=== PATIENT | female | born 1980 | race African-American/Black ===

== ENCOUNTER 2021-06-08 03:04 | Emergency (ER) | payer MEDICAID ==
[~2021-06-08] VITALS: Ht 165.1 cm; Wt 112.9 kg
--- NOTE | 2021-06-08 03:10 | NUR ---
[facility] in [facility] - 06/08/21 at 0319 by APRIL patient to room
[2021-06-08 03:24] VITALS: BP 146/115
--- NOTE | 2021-06-08 03:30 | NUR ---
patient ambulated to the bathroom to change. provided patient with change of clothes and food for patient.
--- NOTE | 2021-06-08 03:34 | NUR ---
patient ambulated to the lobby and asking for food and blanket
--- NOTE | 2021-06-08 03:50 | NUR ---
patient in the lobby and asked for more blankets due to being cold
--- NOTE | 2021-06-08 04:20 | NUR ---
PT NOT PRESENT IN ER LOBBY; PT LEFT FACILITY AT THIS TIME WITHOUT DISCHARGE INSTRUCTIONS.
--- NOTE | 2021-06-08 05:55 | NUR ---
PT RETURNED TO LOBBY REQUESTING DISCHARGE INSTRUCTIONS. INSTRUCTIONS PROVIDED AT THIS TIME. PT AMBULATED OUT OF FACILITY.
== END 2021-06-08 04:20 | disposition home or self-care (01) ==
LOC: MED 03:04
DX: Z02.89 Encounter for other administrative examinations (principal)
CPT/HCPCS: 99283